=== PATIENT | male | born 1955 | race Caucasian/White ===

== ENCOUNTER 2022-01-30 16:04 | Emergency (ER) | payer OTHER ==
[2022-01-30 16:19] VITALS: BP 106/69; PULSE 102; RESP 16; TEMP 98; BMI 28.8
[2022-01-30] MEDS ORDERED: KETOROLAC TROMETHAMINE 30 MG/1 ML VIAL IVPUSH ONE (18:09)
[2022-01-30] MEDS ORDERED: KETOROLAC TROMETHAMINE 30 MG/1 ML VIAL ONE (18:30)
[2022-01-30 19:21] LABS: BASO % 0.3 % (0-2.0); EOS % 0.7 % (0-4.5); HEMATOCRIT 31.7 % (35.4-49); HEMOGLOBIN 10.6 GM/dL (11.7-16.9); LYMPH % 8.4 % (8-40); MCH 28.5 pg (25.7-33.7); MCHC 33.5 g/dl (32.0-35.9); MEAN CELL VOLUME 84.8 fl (80-96); MEAN PLT VOLUME 8.1 fl (7.5-11.1); MONO % 9.2 % (3.8-10.2); NEUT % 81.4 % (42.8-82.8); PLATELET COUNT 437 10^3/uL (134-434); RBC 3.74 M/mm3 (4.00-5.60); RDW 14.4 % (11.9-15.9); WHITE BLOOD COUNT 12.6 K/mm3 (4.0-10.0)
[2022-01-30 19:35] LABS: CHLORIDE 94 mmol/L (98-107); SODIUM 137 mmol/L (136-145)
[2022-01-30 19:36] LABS: ALBUMIN 2.1 g/dl (3.4-5.0); ANION GAP 10 MMOL/L (8-16); BLOOD UREA NITROGEN 16.9 mg/dL (7-18); CALCIUM 8.4 mg/dL (8.5-10.1); CO2 32 mmol/L (21-32); GLUCOSE,RANDOM 77 mg/dL (74-106)
[2022-01-30 19:37] LABS: LIPASE 131 U/L (73-393)
[2022-01-30 19:39] LABS: CREATININE 1.4 mg/dL (0.55-1.3); SGOT/AST 68 U/L (15-37); SGPT/ALT 42 U/L (13-61)
[2022-01-30 19:41] LABS: TOT PROT 7.5 g/dl (6.4-8.2)
[2022-01-30 19:42] LABS: ALK PHOS 179 U/L (45-117)
== END 2022-01-30 20:36 | disposition left against medical advice (07) ==
LOC: JER 16:04
PROC: 3E0333Z Introduction of Anti-inflammatory into Peripheral Vein, Percutaneous Approach (ICD-10-PCS; principal; 2022-01-30)
DX: R07.82 Intercostal pain (principal); R10.9 Unspecified abdominal pain; W01.0XXA Fall on same level from slipping, tripping and stumbling without subsequent striking against object, initial encounter
CPT/HCPCS: 36415; 71045-TC-FY; 80053; 80307; 82550; 82553; 83690; 84484; 85025; 99284-25